=== PATIENT | female | born 1960 | race Caucasian/White ===

== ENCOUNTER 2018-03-18 05:24 | Inpatient (IN) | payer OTHER ==
[~2018-03-18] VITALS: Ht 167.6 cm; Wt 71.2 kg
[~2018-03-18 05:24] MED LIST: CLEOCIN HCL300 MG PO; OXYCODONE5 MG PO
[2018-03-18 05:53] LABS: HEMATOCRIT 45.7 % (36.0-46.0); HEMOGLOBIN 15.6 G/DL (11.9-15.5); MCHC 34.1 G/DL (30.0-36.0); MCV 90.9 FL (83-99); PLATELET COUNT 317 K/uL (156-360); RBC DIS.WIDTH-CV 14.5 % (11.8-14.6); RED BLOOD COUNT 5.03 M/uL (3.80-5.20)
[2018-03-18 06:01] LABS: ALBUMIN 4.3 g/dL (3.2-4.8); CHLORIDE 105 mEq/L (99-109); POTASSIUM 4.2 mEq/L (3.7-5.4); SODIUM 141 mEq/L (136-147)
[2018-03-18 06:04] LABS: GLUCOSE 132 mg/dL (70-99); TOTAL PROTEIN 7.3 g/dL (6.4-8.3)
[2018-03-18 06:05] LABS: TOTAL BILIRUBIN 0.4 mg/dL (0.0-1.0)
[2018-03-18 06:07] LABS: ALKALINE PHOSPHATASE 74 IU/L (3-129); CREATININE 1.2 mg/dL (0.6-1.3); GFR ESTIMATE (CALCULATED) 49 mL/min/
[2018-03-18 06:08] LABS: UREA NITROGEN (BUN) 23 mg/dL (9-23)
[2018-03-18 06:09] LABS: AST (GOT) 26 IU/L (2-34)
[2018-03-18 06:10] LABS: ALT (GPT) 24 IU/L (3-49)
[2018-03-18 06:16] LABS: APPEARANCE CLEAR ((CLEAR)); BILIRUBIN NEGATIVE; BLOOD SMALL; COLOR YELLOW ((YELLOW)); GLUCOSE (STRIP) NEGATIVE; KETONES NEGATIVE; LEUKOCYTES NEGATIVE; NITRITE NEGATIVE; PROTEIN (STRIP) NEGATIVE; SPECIFIC GRAVITY 1.021 (1.000-1.030); UROBILINOGEN 0.2 MG/DL (0.2-1.0)
[2018-03-18 06:26] LABS: BACTERIA NONE SEEN /HPF; EPITHELIAL CELLS RARE /HPF; HYALINE CASTS 0-5 /LPF; MUCUS TRACE /LPF; UCUL ADDED? NO; WHITE BLOOD CELLS 0-5 /HPF (0-5)
[2018-03-18 06:30] LABS: LIPASE 3642 U/L (1.0-51.0); TROP-I INTERPRETATION NEGATIVE; TROPONIN-I < 0.01 ng/mL (0.0-0.30)
[2018-03-18] MEDS ORDERED: LISINOPRIL10 MG PO (07:29)
[2018-03-18] MEDS ORDERED: TYLENOL REGULA325 MG PO (07:29)
[2018-03-18 09:07] LABS: HDL CHOLESTEROL 44 MG/DL (Desirable>=50); LDL CHOLESTEROL 187 mg/dL (Desirable<100); NON-HDL CHOLESTEROL 230 mg/dL (Desirable<160); TOTAL CHOLESTEROL 274 mg/dL (Desirable<200); TRIGLYCERIDES 213 MG/DL (Normal: <150)
[2018-03-18 10:55] VITALS: BP 161/71
[2018-03-18 21:09] VITALS: BP 135/64
[2018-03-18 23:59] VITALS: BP 139/60
[2018-03-19 03:39] VITALS: BP 155/72
[2018-03-19 07:00] VITALS: BP 126/60
[2018-03-19 07:20] LABS: HEMATOCRIT 40.5 % (36.0-46.0); MCH 30.5 PG (29.0-34.0); MCHC 33.3 G/DL (30.0-36.0); MCV 91.4 FL (83-99); PLATELET COUNT 237 K/uL (156-360); RBC DIS.WIDTH-CV 14.3 % (11.8-14.6); RBC DIS.WIDTH-SD 48.2 % (39-53); RED BLOOD COUNT 4.43 M/uL (3.80-5.20)
[2018-03-19 07:26] LABS: HEMOGLOBIN 13.5 G/DL (11.9-15.5)
[2018-03-19 07:32] LABS: AMYLASE 350 IU/L (1-118); CHLORIDE 106 MEQ/L (99-109); GFR ESTIMATE (CALCULATED) > 59 mL/min/; GLUCOSE 107 mg/dL (70-99); LIPASE 255 U/L (1.0-51.0); POTASSIUM 4.1 MEQ/L (3.7-5.4); SODIUM 139 MEQ/L (136-147); UREA NITROGEN (BUN) 11 mg/dL (9-23)
[2018-03-19 11:33] VITALS: BP 142/65
[2018-03-19 16:14] VITALS: BP 126/71
[2018-03-19 19:48] VITALS: BP 128/61
[2018-03-19 23:18] VITALS: BP 143/66
[2018-03-20 03:50] VITALS: BP 138/67
[2018-03-20 06:23] LABS: HEMATOCRIT 39.6 % (36.0-46.0); HEMOGLOBIN 12.9 G/DL (11.9-15.5); MCH 29.6 PG (29.0-34.0); MCHC 32.6 G/DL (30.0-36.0); MCV 90.8 FL (83-99); PLATELET COUNT 214 K/uL (156-360); RBC DIS.WIDTH-SD 46.5 % (39-53); RED BLOOD COUNT 4.36 M/uL (3.80-5.20); WHITE BLOOD COUNT 11.8 K/uL (4.1-10.2)
[2018-03-20 06:53] LABS: ALBUMIN 3.3 G/DL (3.2-4.8); ALKALINE PHOSPHATASE 49 IU/L (3-129); ALT (GPT) 16 IU/L (3-49); AST (GOT) 24 IU/L (2-34); CHLORIDE 104 MEQ/L (99-109); CREATININE 0.9 MG/DL (0.6-1.3); GFR ESTIMATE (CALCULATED) > 59 mL/min/; GLUCOSE 113 mg/dL (70-99); POTASSIUM 3.8 MEQ/L (3.7-5.4); SODIUM 142 MEQ/L (136-147); TOTAL BILIRUBIN 0.8 MG/DL (0.0-1.0); TOTAL PROTEIN 5.3 G/DL (6.4-8.3); UREA NITROGEN (BUN) 9 mg/dL (9-23)
[2018-03-20 06:54] LABS: CHLORIDE 104 MEQ/L (99-109); GFR ESTIMATE (CALCULATED) > 59 mL/min/; GLUCOSE 110 mg/dL (70-99); LIPASE 48 U/L (1.0-51.0); POTASSIUM 3.8 MEQ/L (3.7-5.4); SODIUM 141 MEQ/L (136-147); UREA NITROGEN (BUN) 9 mg/dL (9-23)
[2018-03-20 06:59] LABS: AMYLASE 125 IU/L (1-118)
[2018-03-20 07:26] VITALS: BP 139/68
[2018-03-20 11:25] VITALS: BP 138/71
[2018-03-20 15:30] VITALS: BP 148/65
[2018-03-20 19:30] VITALS: BP 139/70
[2018-03-20 23:25] VITALS: BP 126/61
[2018-03-21 04:05] VITALS: BP 129/62
[2018-03-21 05:51] LABS: HEMATOCRIT 38.5 % (36.0-46.0); HEMOGLOBIN 12.8 G/DL (11.9-15.5); MCH 30.3 PG (29.0-34.0); MCHC 33.2 G/DL (30.0-36.0); PLATELET COUNT 237 K/uL (156-360); RBC DIS.WIDTH-CV 13.8 % (11.8-14.6); RBC DIS.WIDTH-SD 46.1 % (39-53); RED BLOOD COUNT 4.23 M/uL (3.80-5.20); WHITE BLOOD COUNT 8.9 K/uL (4.1-10.2)
[2018-03-21 06:55] LABS: CHLORIDE 107 MEQ/L (99-109); GFR ESTIMATE (CALCULATED) > 59 mL/min/; GLUCOSE 106 mg/dL (70-99); LIPASE 26 U/L (1.0-51.0); POTASSIUM 3.9 MEQ/L (3.7-5.4); SODIUM 145 MEQ/L (136-147); UREA NITROGEN (BUN) 9 mg/dL (9-23)
[2018-03-21 06:59] LABS: AMYLASE 63 IU/L (1-118)
[2018-03-21 07:01] LABS: ALBUMIN 3.6 G/DL (3.2-4.8); ALKALINE PHOSPHATASE 62 IU/L (3-129); ALT (GPT) 22 IU/L (3-49); AST (GOT) 25 IU/L (2-34); CHLORIDE 105 MEQ/L (99-109); GFR ESTIMATE (CALCULATED) > 59 mL/min/; GLUCOSE 106 mg/dL (70-99); POTASSIUM 3.9 MEQ/L (3.7-5.4); SODIUM 143 MEQ/L (136-147); TOTAL PROTEIN 5.6 G/DL (6.4-8.3); UREA NITROGEN (BUN) 9 mg/dL (9-23)
[2018-03-21 08:49] VITALS: BP 154/70
[2018-03-21 11:54] VITALS: BP 152/69
[2018-03-21 15:33] VITALS: BP 144/70
[2018-03-21 20:03] VITALS: BP 146/65
[2018-03-21 23:22] VITALS: BP 119/56
[2018-03-22 04:04] VITALS: BP 112/56
[2018-03-22 06:44] LABS: BASOPHIL (%) 0.7 % (0-1); BASOPHIL COUNT 0.1 K/uL (0-0.1); EOSINOPHIL (%) 5.1 % (0-5); EOSINOPHIL COUNT 0.4 K/uL (0-0.3); HEMATOCRIT 39.8 % (36.0-46.0); HEMOGLOBIN 13.2 G/DL (11.9-15.5); IMMATURE GRANULOCYTE (%) 0.3 % (0.0-0.7); LYMPHOCYTE (%) 20.4 % (15-42); LYMPHOCYTE COUNT 1.5 K/uL (1.0-2.8); MCH 30.1 PG (29.0-34.0); MCHC 33.2 G/DL (30.0-36.0); MCV 90.9 FL (83-99); MONOCYTE (%) 9.8 % (3-12); MONOCYTE COUNT 0.7 K/uL (0-0.8); NEUTROPHIL (%) 63.7 % (45-76); NEUTROPHIL COUNT 4.6 K/uL (1.8-6.4); PLATELET COUNT 278 K/uL (156-360); RBC DIS.WIDTH-CV 13.6 % (11.8-14.6); RBC DIS.WIDTH-SD 45.1 % (39-53); RED BLOOD COUNT 4.38 M/uL (3.80-5.20); WHITE BLOOD COUNT 7.3 K/uL (4.1-10.2)
[2018-03-22 07:10] LABS: ALBUMIN 3.6 G/DL (3.2-4.8); ALKALINE PHOSPHATASE 66 IU/L (3-129); ALT (GPT) 22 IU/L (3-49); AST (GOT) 18 IU/L (2-34); CHLORIDE 106 MEQ/L (99-109); CREATININE 1.2 MG/DL (0.6-1.3); GFR ESTIMATE (CALCULATED) 49 mL/min/; GLUCOSE 95 mg/dL (70-99); LIPASE 12 U/L (1.0-51.0); POTASSIUM 4.1 MEQ/L (3.7-5.4); SODIUM 145 MEQ/L (136-147); TOTAL BILIRUBIN 1.2 MG/DL (0.0-1.0); TOTAL PROTEIN 6.2 G/DL (6.4-8.3); UREA NITROGEN (BUN) 8 mg/dL (9-23)
[2018-03-22 07:52] VITALS: BP 107/51
[2018-03-22 11:49] VITALS: BP 149/67
[2018-03-22 15:29] VITALS: BP 140/67
[2018-03-22 19:32] VITALS: BP 155/65
[2018-03-22 20:21] LABS: C DIFF TOXIN NEGATIVE (NEGATIVE)
[2018-03-23 00:05] VITALS: BP 158/70
[2018-03-23 03:29] VITALS: BP 116/56
[2018-03-23 05:41] LABS: HEMATOCRIT 37.6 % (36.0-46.0); HEMOGLOBIN 12.2 G/DL (11.9-15.5); MCH 29.5 PG (29.0-34.0); MCHC 32.4 G/DL (30.0-36.0); MCV 90.8 FL (83-99); PLATELET COUNT 265 K/uL (156-360); RBC DIS.WIDTH-CV 13.5 % (11.8-14.6); RBC DIS.WIDTH-SD 45.3 % (39-53); RED BLOOD COUNT 4.14 M/uL (3.80-5.20)
[2018-03-23 06:05] LABS: ALBUMIN 3.4 G/DL (3.2-4.8); ALKALINE PHOSPHATASE 59 IU/L (3-129); ALT (GPT) 17 IU/L (3-49); AST (GOT) 13 IU/L (2-34); CHLORIDE 108 MEQ/L (99-109); CREATININE 1.1 MG/DL (0.6-1.3); GFR ESTIMATE (CALCULATED) 54 mL/min/; GLUCOSE 98 mg/dL (70-99); POTASSIUM 3.8 MEQ/L (3.7-5.4); SODIUM 145 MEQ/L (136-147); TOTAL PROTEIN 5.7 G/DL (6.4-8.3); UREA NITROGEN (BUN) 7 mg/dL (9-23)
[2018-03-23 06:18] LABS: TOTAL BILIRUBIN 0.8 MG/DL (0.0-1.0)
[2018-03-23 07:44] VITALS: BP 139/69
[2018-03-23 16:11] VITALS: BP 154/69
[2018-03-23 19:45] VITALS: BP 143/64
[2018-03-23 23:33] VITALS: BP 134/61
[2018-03-24 05:59] LABS: BASOPHIL (%) 0.8 % (0-1); BASOPHIL COUNT 0.1 K/uL (0-0.1); EOSINOPHIL (%) 5.1 % (0-5); EOSINOPHIL COUNT 0.3 K/uL (0-0.3); HEMATOCRIT 36.5 % (36.0-46.0); HEMOGLOBIN 11.7 G/DL (11.9-15.5); IMMATURE GRANULOCYTE (%) 0.5 % (0.0-0.7); LYMPHOCYTE (%) 26.6 % (15-42); LYMPHOCYTE COUNT 1.6 K/uL (1.0-2.8); MCHC 32.1 G/DL (30.0-36.0); MCV 90.6 FL (83-99); MONOCYTE (%) 9.4 % (3-12); MONOCYTE COUNT 0.6 K/uL (0-0.8); NEUTROPHIL (%) 57.6 % (45-76); NEUTROPHIL COUNT 3.5 K/uL (1.8-6.4); PLATELET COUNT 306 K/uL (156-360); RBC DIS.WIDTH-CV 13.3 % (11.8-14.6); RBC DIS.WIDTH-SD 44.1 % (39-53); RED BLOOD COUNT 4.03 M/uL (3.80-5.20); WHITE BLOOD COUNT 6.1 K/uL (4.1-10.2)
[2018-03-24 08:45] VITALS: BP 150/62
[2018-03-24 11:33] VITALS: BP 117/55
[2018-03-24 16:04] VITALS: BP 136/61
[2018-03-24 23:32] VITALS: BP 126/60
[2018-03-25 08:12] VITALS: BP 129/58
[2018-03-25] MEDS ORDERED: NICOTINE PATCH1 EAC2 TD (09:43)
[2018-03-25] MEDS ORDERED: CILOSTAZOL50 MG PO (09:43)
[2018-03-25] MEDS ORDERED: METOCLOPRAMIDE H5 MG PO (09:44)
[2018-03-25] MEDS ORDERED: NORVASC5 MG PO (09:44)
== END 2018-03-25 11:05 | disposition home or self-care (01) | DRG 439 ==
LOC: EME 05:24 → 2EAST 08:01 → EDOF 08:01 → ENRESERV 08:03 → 2EAST 10:38
PROVIDERS: Emergency Medicine; Internal Medicine; Internal Medicine Gastroenterology
PROC: 0DB68ZX Excision of Stomach, Via Natural or Artificial Opening Endoscopic, Diagnostic (ICD-10-PCS; principal; 2018-03-23)
DX: K85.00 Idiopathic acute pancreatitis without necrosis or infection (principal); K86.3 Pseudocyst of pancreas; I10 Essential (primary) hypertension; K31.84 Gastroparesis; E78.5 Hyperlipidemia, unspecified; J44.9 Chronic obstructive pulmonary disease, unspecified; I77.1 Stricture of artery; I73.9 Peripheral vascular disease, unspecified; I70.0 Atherosclerosis of aorta; S93.691A Other sprain of right foot, initial encounter; W01.0XXA Fall on same level from slipping, tripping and stumbling without subsequent striking against object, initial encounter; Y92.000 Kitchen of unspecified non-institutional (private) residence as the place of occurrence of the external cause; F17.210 Nicotine dependence, cigarettes, uncomplicated; E78.1 Pure hyperglyceridemia; G89.29 Other chronic pain; K29.60 Other gastritis without bleeding
CPT/HCPCS: 71046; 73630; 74019; 74177; 80048; 80053; 80061; 81003; 82150; 83690; 84100; 84484; 85025; 85027; 87493; 88305; 88342 TC; 93005; 93925; 99281; 99285; J0780; J2405; J3010; J7030; J7120